=== PATIENT | female | born 1995 | race African-American/Black ===

== ENCOUNTER 2021-08-13 14:58 | Emergency (ER) | payer OTHER ==
[~2021-08-13] VITALS: Ht 157.5 cm; Wt 63.5 kg
--- NOTE | 2021-08-13 15:12 | NUR ---
CALLED TO TRIAGE, NO ANSWER
[2021-08-13 15:27] VITALS: BP 165/81
--- NOTE | 2021-08-13 15:36 | NUR ---
URINE COLLECTED AND SENT TO LAB
[2021-08-13 15:41] LABS: BILIRUBIN,URINE SMALL (NEGATIVE); COLOR,URINE YELLOW (YELLOW); LEUKOCYTE ESTERASE ,URINE Negative (NEGATIVE); NITRITE, URINE Negative (NEGATIVE); PH,URINE 6.5 (5.0-8.0); PROTEIN,URINE Trace mg/dl (NEGATIVE); UGLUCOSE Negative (NEGATIVE)
[2021-08-13 15:58] LABS: BACTERIA,URINE Few /HPF (None Seen); MUCUS,URINE Few /LPF (None Seen); WBC,URINE 0-2 /HPF (0-3)
[2021-08-13] MEDS ORDERED: AZITHROMYCIN 250 MG TABLET PO ONE (16:00)
[2021-08-13] MEDS ORDERED: METRONIDAZOLE 500 MG TABLET PO ONE (16:00)
[2021-08-13] MEDS ORDERED: CEFTRIAXONE 500 MG VIAL IM ONE ×2 (16:00→16:30)
[2021-08-13] MEDS ORDERED: CEFTRIAXONE 500 MG VIAL ONE (16:21)
[2021-08-13] MEDS ORDERED: AZITHROMYCIN 250 MG TABLET ONE (16:21)
[2021-08-13] MEDS ORDERED: LIDOCAINE /MPF 1% VIAL 5 ML VIAL ONE (16:21)
[2021-08-13] MEDS ORDERED: METRONIDAZOLE 500 MG TABLET ONE (16:21)
--- NOTE | 2021-08-13 16:31 | NUR ---
PATIENT MD DONTE MADE AWARE
== END 2021-08-13 16:34 | disposition left against medical advice (07) ==
LOC: ER 15:03
DX: Z20.2 Contact with and (suspected) exposure to infections with a predominantly sexual mode of transmission (principal)
CPT/HCPCS: 81001; 84703; 87491; 87591; 99283; J0696; J3490

== ENCOUNTER 2021-10-11 10:38 | Emergency (ER) | payer OTHER ==
[~2021-10-11] VITALS: Ht 157.5 cm; Wt 63.5 kg
--- NOTE | 2021-10-11 10:54 | NUR ---
PT FROM HOME C/O SEVERE BACK PAIN; 10/10; NO FALL ; WORST FOR THE LAST 2 DAYS. HX BACK PAIN. PT A/OC4. TOLERATING R/A WELL.
[2021-10-11] MEDS ORDERED: IBUP-1955 PO (10:58)
[2021-10-11] MEDS ORDERED: HYDR-4275 PO (10:58)
[2021-10-11] MEDS ORDERED: KETOROLAC TROMETHAMINE INJ 30 MG/ML VIAL ONE (11:12)
[2021-10-11] MEDS: KETOROLAC TROMETHAMINE INJ 60 MG/2 ML VIAL IM ONE (11:18)
--- NOTE | 2021-10-11 11:27 | NUR ---
Patient discharged to home in stable condition. RX Written and verbal after care instructions given. Patient verbalizes understanding of instruction. PT DC VIA W/C
[2021-10-11 11:28] VITALS: BP 116/63
== END 2021-10-11 11:30 | disposition home or self-care (01) ==
LOC: ER 10:40
DX: M54.50 Low back pain, unspecified (principal)
CPT/HCPCS: 96372; 99283; J1885